=== PATIENT | female | born 1980 | race Caucasian/White ===

== ENCOUNTER 2022-08-17 17:46 | Emergency (ER) | payer OTHER, MEDICAID, SELFPAY ==
[2022-08-17 18:00] VITALS: BP 117/89; PULSE 78; RESP 16; TEMP 36.7; O2SAT 97; BMI 36.1
[2022-08-17] MEDS: ONDANSETRON 4 MG/2 ML INJ IV (18:09)
[2022-08-17 18:32] LABS: Add Manual Diff / Slide Review NO; Basophils Absolute Auto 100 /uL (0-100); Basophils Percent Auto 0.7 % (0-2); Eosinophils Absolute Auto 100 /uL (0-450); Eosinophils Percent Auto 0.7 % (2-4); Hematocrit 39.7 % (36-46); Hemoglobin 13.4 g/dL (12.0-16.0); Lymphocytes Absolute Auto 4100 /uL (1100-4500); Lymphocytes Percent Auto 47.5 % (25-40); Mean Corpuscular HGB Conc 33.7 % (30-36); Mean Corpuscular Hemoglobin 30.7 PG (26-34); Mean Corpuscular Volume 90.9 fL (80-100); Monocytes Absolute Auto 500 /uL (0-900); Monocytes Percent Auto 5.2 % (3-14); Neutrophils Absolute Auto 4000 /uL (1500-7000); Neutrophils Percent Auto 45.9 % (50-75); Platelet Count 259 X10^3/uL (150-400); Red Blood Cell Count 4.37 X10^6/uL (4.0-5.2); White Blood Cell Count 8.7 X10^3/uL (4.5-11.0)
[2022-08-17 18:39] LABS: Alanine Aminotransferase 12 IU/L (<35); Albumin 3.9 g/dL (3.5-5.0); Albumin Globulin Ratio 1.1 (1.0-2.8); Alkaline Phosphatase 48 U/L (38-126); Aspartate Aminotransferase 20 IU/L (14-36); BUN Creatinine Ratio 8.6 (6-22); Bilirubin Total 0.2 mg/dL (0.2-1.3); Blood Urea Nitrogen 8 mg/dL (7-17); Calcium 8.8 mg/dL (8.4-10.2); Carbon Dioxide 31 mmol/L (22-32); Chloride 103 mmol/L (98-107); Estimated Glomerular Filt Rate > 60 mL/min (>60); Globulin 3.6 g/dL (1.7-4.1); Glucose 62 mg/dL (70-100); HEMOLYSIS < 15 (0-50); Lipase 103 U/L (23-300); Potassium 3.8 mmol/L (3.4-5.1); Sodium 140 mmol/L (137-145); Total Protein 7.5 g/dL (6.3-8.2)
[2022-08-17 19:41] VITALS: BP 104/67; PULSE 76; RESP 16; O2SAT 98
[2022-08-17 22:09] VITALS: BP 110/70; PULSE 69; RESP 20; O2SAT 97
[2022-08-17 23:17] VITALS: PULSE 60; RESP 20; O2SAT 92
--- NOTE | 2022-08-18 00:34 | ED_ITS ---
HPI - Abdominal Pain General Chief Complaint: Abdominal Pain Stated Complaint: Abd pain, back pain, vomiting Time Seen by Provider: 08/18/22 00:18 Source: patient Mode of arrival: Ambulatory History of Present Illness HPI narrative: Patient is a 41-year-old female history of chronic pain on methadone, anxiety presenting with left lower quadrant pain. She reports it has been ongoing for about the last 2 weeks progressively getting worse. She feels like she is not keeping anything down throwing up at times. No bloody stools. She is been taking Tylenol and ibuprofen home without any relief. She denies any fever or chills. She reports that the pain is going through to her back. Related Data Previous Rx's Medication Instructions Recorded ondansetron 4 mg disintegrating 4 mg PO Q8H PRN nausea and 08/18/22 tablet vomiting #10 tabs Allergies Allergy/AdvReac Type Severity Reaction Status Date / Time amoxicillin Allergy Verified 08/17/22 18:00 aspirin Allergy Verified 08/17/22 18:00 Sulfa (Sulfonamide Allergy Verified 08/17/22 18:00 Antibiotics) Review of Systems Review of Systems ROS Unobtainable: All systems reviewed & are unremarkable except as noted in HPI and below Patient History Social History Smoking Status: Former smoker Smoking Status: Former smoker Substance Use Type: does not use Exam Initial Vital Signs Initial Vital Signs: Vital Signs Temperature 98.1 F 08/17/22 18:00 Pulse Rate 78 08/17/22 18:00 Respiratory Rate 16 08/17/22 18:00 Blood Pressure 117/89 08/17/22 18:00 Pulse Oximetry 97 08/17/22 18:00 Oxygen Delivery Method Room Air 08/17/22 18:00 GENERAL: Alert 41-year-old female appears uncomfortable and in HEENT: Head atraumatic,EOMI, pupils reactive, face symmetric, [moist] mucous membranes CARDIOVASCULAR: Regular rate and rhythm without murmurs, rubs or gallops. RESPIRATORY: Breath sounds equal bilaterally, no wheezes rales or rhonchi. ABDOMEN: Soft, left lower quadrant tenderness no guarding no rebound : No CVA tenderness EXTREMITIES: Normal range of motion, no clubbing or edema. Neurovascularly intact NEUROLOGICAL: Alert and oriented x4. SKIN: Warm, dry, no laceration, no petechiae, no rashes or lesions. Course Orders Ordered: ED Orders 08/18/22 00:34 CT abdomen pelvis w con Stat Discontinued Medications Ketorolac Tromethamine (Ketorolac 30 Mg/Ml Vial) 15 mg IV NOW ONE Stop: 08/18/22 00:35 Last Admin: 08/18/22 00:51 Dose: 15 mg Documented By: CHERYL Lorazepam (Lorazepam 2 Mg/Ml Inj) 0.5 mg IV NOW ONE Stop: 08/18/22 00:35 Last Admin: 08/18/22 00:50 Dose: 0.5 mg Documented By: CHERYL Ondansetron HCl (Ondansetron 4 Mg Odt) 4 mg PO NOW PRN PRN Reason: Nausea And Vomiting Ondansetron HCl (Ondansetron 4 Mg/2 Ml Inj) 4 mg IV NOW PRN PRN Reason: Nausea And Vomiting Last Admin: 08/17/22 18:09 Dose: 4 mg Documented By: IRMA Vital Signs Vital signs: Vital Signs - 8 hr 08/17/22 22:09 08/17/22 23:17 08/18/22 02:09 Pulse Rate 69 60 65 Respiratory Rate 20 20 20 Blood Pressure 110/70 94/55 L Pulse Oximetry 97 92 96 Oxygen Delivery Method Room Air Room Air MDM - Abdominal Pain Lab Data 08/17/22 18:17 08/17/22 18:17 Labs: Lab Results 08/17/22 08/17/22 Range/Units 18:17 18:17 WBC 8.7 (4.5-11.0) X10^3/uL RBC 4.37 (4.0-5.2) X10^6/uL Hgb 13.4 (12.0-16.0) g/dL Hct 39.7 (36-46) % MCV 90.9 (80-100) fL MCH 30.7 (26-34) PG MCHC 33.7 (30-36) % RDW 15.0 H (11.6-14.8) % Plt Count 259 (150-400) X10^3/uL Neut % (Auto) 45.9 L (50-75) % Lymph % (Auto) 47.5 H (25-40) % Rowan % (Auto) 5.2 (3-14) % Eos % (Auto) 0.7 L (2-4) % Baso % (Auto) 0.7 (0-2) % Neut # (Auto) 4000 (2887-0402) /uL Lymph # (Auto) 4100 (0040-8416) /uL Rowan # (Auto) 500 (0-900) /uL Eos # (Auto) 100 (0-450) /uL Baso # (Auto) 100 (0-100) /uL Sodium 140 (137-145) mmol/L Potassium 3.8 (3.4-5.1) mmol/L Chloride 103 (98-107) mmol/L Carbon Dioxide 31 (22-32) mmol/L BUN 8 (7-17) mg/dL Creatinine 0.93 (0.52-1.04) mg/dL Estimated GFR > 60 (>60) mL/min BUN/Creatinine Ratio 8.6 (6-22) Glucose 62 L (70-100) mg/dL Calcium 8.8 (8.4-10.2) mg/dL Total Bilirubin 0.2 (0.2-1.3) mg/dL AST 20 (14-36) IU/L ALT 12 (<35) IU/L Alkaline Phosphatase 48 (38-126) U/L Total Protein 7.5 (6.3-8.2) g/dL Albumin 3.9 (3.5-5.0) g/dL Globulin 3.6 (1.7-4.1) g/dL Albumin/Globulin Ratio 1.1 (1.0-2.8) Lipase 103 (23-300) U/L Point of care testing: Urine Dip Bedside Urine Glucose Negative Bedside Urine Bilirubin - Negative Bedside Urine Ketone - Negative Urine Specific [place] 1.025 Bedside Urine Occult Blood - Negative Bedside Urine pH 5.5 Bedside Urine Protein - Negative Bedside Urine Urobilinogen - Negative Bedside Urine Nitrite - Negative Bedside Urine Leukocytes - Negative Esterase Imaging Data CT scan - abdomen/pelvis: Radiologist's Impression: PROCEDURE:? CT ABDOMEN PELVIS W CON ? INDICATIONS:? llq pain ? TECHNIQUE:? After the administration of intravenous contrast, axial sections acquired from the lung bases to the pubic symphysis.? Coronal and sagittal reformats were performed.? For radiation dose reduction, the following was used:? automated exposure control, adjustment of mA and/or kV according to patient size.? ? COMPARISON:? None. ? FINDINGS:? Image quality:? Good ? Lower chest:? Basal scarring/atelectasis.? No hiatal hernia.? Overall heart size is within normal limits. ? Solid organs:? Liver is unremarkable.? Gallbladder is unremarkable.? There is mild biliary distension, involving the intrahepatic duct as well.? The CBD measures 8 mm. No pancreatic ductal dilation.? No splenomegaly.? No adrenal nodules.? No hydronephrosis. ? Vessels and lymph nodes:? No abdominal aortic aneurysm.? The main portal vein appears patent.? No pathologic adenopathy by size criteria. ? Bowel and peritoneum:? No evidence of small bowel obstruction.? No significant bowel inflammatory changes identified.? Normal appendix.? There is fecalization of distal small bowel loops, suggestive of slow transit time through the ileocecal valve. ? Body wall:? Unremarkable ? Pelvis:? Unremarkable appearance of the reproductive organs, but overall not well evaluated on CT.? Consider ultrasound if there is concern.? Bladder is under distended. ? Bones:? No acute or suspicious osseous finding.? Degenerative changes are present. ? IMPRESSION:? Mild dilation of the biliary tree with the CBD measuring up to 8 mm, also involving the intrahepatic branches.? This is of uncertain clinical significance and chronicity.? Correlate with LFTs.? Further evaluation could be performed with MRCP or ERCP if necessary.? Otherwise, no acute abdominal pelvic pathology identified.? Other findings as above. ? ? Dictated by: Edis Higuera M.D. on 08/18/2022 at 1:10 ? ? [facility] Narrative Medical decision making narrative: Patient presenting today with left lower quadrant pain ongoing for about 2 weeks. Blood work does not show any leukocytosis anemia electrolyte abnormality elevated liver enzymes bilirubin or GAEL. CT does not show any cause for left lower quadrant pain. It does show mild dilation of biliary tree with CBD up to 8 mm. However absolutely no right upper quadrant pain or Bajwa sign. No elevation in liver enzymes or bilirubin to suggest that this is cause of pain. Pain is really around the umbilicus kind of area. Not necessarily lower. Negative test no evidence of UTI today. She is chronically on methad one. She is given Ativan here because she started to feel anxious she did not have her Ativan yet today. No cause of her ongoing abdominal pain and back pain. Discharge Plan Departure Patient Disposition: Home Clinical Impression: Abdominal pain Instructions: DI for Abdominal Pain-Adult Activity Restrictions/Additional Instructions: *You have been diagnosed with abdominal pain *What to do: At this time CT and blood work are overall reassuring no cause of your abdominal pain at this time. You may need colonoscopy or further evaluation if it continues *Continue to take medications as directed Zofran 4 mg every 8 hours if needed for nausea or vomiting-- [facility] *Follow up with your primary care provider in 2-3 days or call [phone] *Return to ER if you should have increasing pain nausea vomiting fever [or] any new, worsening or concerning symptoms Prescriptions: New ondansetron 4 mg tablet,disintegrating 4 mg PO Q8H PRN (Reason: nausea and vomiting) Qty: 10 0RF Stand Alone Forms: Patient Portal/API
--- NOTE | 2022-08-18 00:34 | DI.CT.S_ITS ---
PROCEDURE: CT ABDOMEN PELVIS W CON INDICATIONS: llq pain TECHNIQUE: After the administration of intravenous contrast, axial sections acquired from the lung bases to the pubic symphysis. Coronal and sagittal reformats were performed. For radiation dose reduction, the following was used: automated exposure control, adjustment of mA and/or kV according to patient size. COMPARISON: None. FINDINGS: Image quality: Good Lower chest: Basal scarring/atelectasis. No hiatal hernia. Overall heart size is within normal limits. Solid organs: Liver is unremarkable. Gallbladder is unremarkable. There is mild biliary distension, involving the intrahepatic duct as well. The CBD measures 8 mm. No pancreatic ductal dilation. No splenomegaly. No adrenal nodules. No hydronephrosis. Vessels and lymph nodes: No abdominal aortic aneurysm. The main portal vein appears patent. No pathologic adenopathy by size criteria. Bowel and peritoneum: No evidence of small bowel obstruction. No significant bowel inflammatory changes identified. Normal appendix. There is fecalization of distal small bowel loops, suggestive of slow transit time through the ileocecal valve. Body wall: Unremarkable Pelvis: Unremarkable appearance of the reproductive organs, but overall not well evaluated on CT. Consider ultrasound if there is concern. Bladder is under distended. Bones: No acute or suspicious osseous finding. Degenerative changes are present. IMPRESSION: Mild dilation of the biliary tree with the CBD measuring up to 8 mm, also involving the intrahepatic branches. This is of uncertain clinical significance and chronicity. Correlate with LFTs. Further evaluation could be performed with MRCP or ERCP if necessary. Otherwise, no acute abdominal pelvic pathology identified. Other findings as above. Dictated by: Edis Higuera M.D. on 08/18/2022 at 1:10 Approved by: Edis Higuera M.D. on 08/18/2022 at 1:16
[2022-08-18] MEDS: LORazepam 2 MG/ML INJ 0.5 MG IV (00:50)
[2022-08-18] MEDS: KETOROLAC 30 MG/ML VIAL 15 MG IV (00:51)
[2022-08-18 02:09] VITALS: BP 94/55; PULSE 65; RESP 20; O2SAT 96
[2022-08-18 05:03] LABS: Pregnancy Test Serum,Qual Negative (Negative)
== END 2022-08-18 02:44 | disposition home or self-care (01) ==
PROVIDERS: Emergency Medicine; Emergency Provider Emergency Medicine
DX: R10.32 Left lower quadrant pain (principal)
CPT/HCPCS: 36415; 74177; 80053; 81003; 83690; 84703; 85025; 96374; 96375; 99284; J1885; J2060; J2405; Q9967

== ENCOUNTER 2022-09-17 07:38 | Emergency (ER) | payer OTHER, MEDICAID, SELFPAY ==
[2022-09-17] VITALS (16 sets, daily range): BP systolic 91–112; BP diastolic 50–76; PULSE 56–83; RESP 12–32; TEMP 36.5; O2SAT 94–97; BMI 34.9
--- NOTE | 2022-09-17 08:12 | ED.GIBLEED ---
HPI - GI Bleed General Chief complaint: GI Bleed Stated complaint: Rectal Bleeding Time Seen by Provider: 09/17/22 08:09 Source: patient and EMS Mode of arrival: EMS Limitations: no limitations History of Present Illness HPI Narrative: This is a 41-year-old with chronic back pain on trazodone, lorazepam and methadone. Patient states she has felt unwell she is had some rectal bleeding she believes and also some vaginal bleeding. Patient states she is had 1 episode before where she had some bloody stools. Patient states she is had formed stool she states it was red she is not really sure if it was bright red or dark red. She states no diarrheal stools. She states it was on toilet paper but also mixed in with the stool. She states it maybe there was some black mucousy stuff as well. Patient notes she is had abdominal pain that has been persistent for some time. She states the methadone usually helpful. She takes it specifically for chronic low back pain. Patient states she is had some chills. Subjective fever. She denies chest pain, no shortness of breath. She is had nausea but no vomiting she states she started having some vaginal bleeding in the last day. She states she has not had regular periods for 20 years. She states she started having menses around age 10. Having them regularly around age 15. She had to have injections of medications in order to get and had 3 prior pregnancies with 2 miscarriages 1 successful delivery. Patient states after that she stopped having periods and has not had any for about 20 years. She states she has not had any spotting or other changes and was told that she had gone into early menopause. Patient has had a tubal ligation. She denies any dysuria, urgency or frequency. She states blood just started today this morning and states she has not been having a lot so far. Patient states she did get really dizzy yesterday she thinks she might have passed out. She states she was sitting on a couch and woke up. She thinks it was just for a few seconds. She did feel dizzy just before. Patient states no other medications and those stated above. She denies other surgeries besides tubal ligation. She states she does have several allergies to medications. States she quit smoking tobacco but now vapes. Denies active alcohol use. States no recreational or illicit drugs. Related Data Previous Rx's Medication Instructions Recorded ondansetron 4 mg disintegrating 4 mg PO Q8H PRN nausea and 08/18/22 tablet vomiting #10 tabs Allergies Allergy/AdvReac Type Severity Reaction Status Date / Time fentanyl Allergy Severe Anaphylaxis Verified 09/17/22 08:22 amoxicillin Allergy Verified 08/17/22 18:00 aspirin Allergy Swelling Verified 09/17/22 08:22 of Lip/Tongue/Throat Carbapenems Allergy Verified 09/17/22 08:22 Sulfa (Sulfonamide Allergy Headache Verified 09/17/22 08:22 Antibiotics) cephelosporins Allergy Uncoded 09/17/22 08:22 Review of Systems Review of Systems ROS Unobtainable: All systems reviewed & are unremarkable except as noted in HPI and below Patient History Social History Smoking Status: Current every day smoker Smoking Status: Current every day smoker tobacco type: vaping Substance Use Type: does not use Exam Narrative Exam Narrative: GENERAL: Alert and oriented x three, female in mild distress HEENT: Head normocephalic, atraumatic, EOMI, pupils reactive, face symmetric, moist mucous membranes NECK: Supple, full range of motion CARDIOVASCULAR: Regular rate and rhythm without murmurs, rubs or gallops. RESPIRATORY: Breath sounds equal bilaterally, no wheezes rales or rhonchi. ABDOMEN: Soft, generalized tender. Normoactive bowel sounds all 4 quadrants. No guarding or rebound, rigidity, no mass : No CVA tenderness. Female: external vaginal exam is normal, patient has mild vaginal bleeding, no discharge, no cervical motion tenderness, otherwise normal speculum exam, no adnexal tenderness/mass. Bimanual exam is normal, no enlarged or tender uterus. Non-gravid. Rectal: non-tender, brownish stool, patient had blood that had run from the vaginal area towards the rectum so hemoccult was not performed as it would likely be contaminated, no masses or nodules noted. EXTREMITIES: Normal range of motion, no clubbing or edema. Neurovascularly intact NEUROLOGICAL: Cranial nerves II through XII grossly intact. Moving all extremities SKIN: Warm, dry, no petechiae, no rashes or lesions. Initial Vital Signs Initial Vital Signs: Vital Signs Temperature 97.7 F 09/17/22 07:39 Pulse Rate 74 09/17/22 07:39 Respiratory Rate 16 09/17/22 07:39 Blood Pressure 112/75 09/17/22 07:39 Pulse Oximetry 95 09/17/22 07:39 Oxygen Delivery Method Room Air 09/17/22 07:39 Course Orders Ordered: ED Orders 09/17/22 11:06 CT abdomen pelvis w con Stat Discontinued Medications Alprazolam (Alprazolam 0.5 Mg Tablet) 1 mg PO NOW ONE Stop: 09/17/22 10:26 Last Admin: 09/17/22 10:33 Dose: 1 mg Documented By: NR Sodium Chloride (Normal Saline 0.9%) 1,000 mls @ 1,000 mls/hr IV BOLUS ONE Stop: 09/17/22 09:23 Last Infusion: 09/17/22 10:40 Dose: 0 mls/hr Documented By: Admin: 09/17/22 09:37 Dose: 1,000 mls/hr Documented By: NR Ketorolac Tromethamine (Ketorolac 30 Mg/Ml Vial) 15 mg IV NOW ONE Stop: 09/17/22 09:22 Last Admin: 09/17/22 09:36 Dose: 15 mg Documented By: ELENI Ondansetron HCl (Ondansetron 4 Mg/2 Ml Inj) 4 mg IV NOW PRN PRN Reason: Nausea And Vomiting Last Admin: 09/17/22 09:38 Dose: 4 mg Documented By: ELENI Ondansetron HCl (Ondansetron 4 Mg Odt) 4 mg SL NOW PRN PRN Reason: Nausea And Vomiting Pantoprazole Sodium (Pantoprazole 40 Mg Vial) 80 mg IV NOW ONE Stop: 09/17/22 07:55 Last Admin: 09/17/22 09:38 Dose: 80 mg Documented By: NR Vital Signs Vital signs: Vital Signs - 8 hr 09/17/22 11:00 09/17/22 11:00 09/17/22 11:10 Pulse Rate 60 Respiratory Rate 18 Blood Pressure 91/50 L 95/56 L Pulse Oximetry 95 09/17/22 11:10 09/17/22 11:23 09/17/22 11:23 Pulse Rate 59 L 56 L Respiratory Rate 22 Blood Pressure 112/63 Pulse Oximetry 95 94 09/17/22 12:27 09/17/22 12:28 09/17/22 12:28 Pulse Rate 61 Respiratory Rate Blood Pressure 109/74 Pulse Oximetry 97 96 MDM - GI Bleed Lab Data 09/17/22 07:48 09/17/22 07:48 Labs: Lab Results 09/17/22 09/17/22 09/17/22 Range/Units 07:48 07:48 07:48 WBC 6.5 (4.5-11.0) X10^3/uL RBC 4.12 (4.0-5.2) X10^6/uL Hgb 12.6 (12.0-16.0) g/dL Hct 37.7 (36-46) % MCV 91.5 (80-100) fL MCH 30.5 (26-34) PG MCHC 33.4 (30-36) % RDW 14.7 (11.6-14.8) % Plt Count 260 (150-400) X10^3/uL Neut % (Auto) 64.1 (50-75) % Lymph % (Auto) 27.1 (25-40) % Stephenson % (Auto) 7.3 (3-14) % Eos % (Auto) 0.9 L (2-4) % Baso % (Auto) 0.6 (0-2) % Neut # (Auto) 4200 (5285-4143) /uL Lymph # (Auto) 1800 (7795-7436) /uL Stephenson # (Auto) 500 (0-900) /uL Eos # (Auto) 100 (0-450) /uL Baso # (Auto) 0 (0-100) /uL PT 11.4 (10.1-12.7) SECONDS INR 1.0 (0.9-1.3) APTT 28 (26-36) SECONDS Sodium 138 (137-145) mmol/L Potassium 4.0 (3.4-5.1) mmol/L Chloride 103 (98-107) mmol/L Carbon Dioxide 27 (22-32) mmol/L BUN 10 (7-17) mg/dL Creatinine 0.77 (0.52-1.04) mg/dL Estimated GFR > 60 (>60) mL/min BUN/Creatinine Ratio 13.0 (6-22) Glucose 107 H (70-100) mg/dL Calcium 8.6 (8.4-10.2) mg/dL Total Bilirubin 0.3 (0.2-1.3) mg/dL AST 19 (14-36) IU/L ALT 15 (<35) IU/L Alkaline Phosphatase 49 (38-126) U/L Total Creatine Kinase (30-135) U/L CK-MB (CK-2) (<2.37) ng/mL CK-MB (CK-2) Rel Index (1.5-5.0) % Troponin I (0.01-0.034) ng/mL NT-Pro-B Natriuret Pep (<125) pg/mL Total Protein 6.7 (6.3-8.2) g/dL Albumin 3.7 (3.5-5.0) g/dL Globulin 3.0 (1.7-4.1) g/dL Albumin/Globulin Ratio 1.2 (1.0-2.8) Urine RBC (0-5/HPF) Urine WBC (0-5/HPF) Ur Squamous Epith Cells (0-5/HPF) Urine Bacteria (None) Ur Culture Indicated? Blood Type Antibody Screen 09/17/22 09/17/22 09/17/22 Range/Units 07:48 07:48 07:48 WBC (4.5-11.0) X10^3/uL RBC (4.0-5.2) X10^6/uL Hgb (12.0-16.0) g/dL Hct (36-46) % MCV (80-100) fL MCH (26-34) PG MCHC (30-36) % RDW (11.6-14.8) % Plt Count (150-400) X10^3/uL Neut % (Auto) (50-75) % Lymph % (Auto) (25-40) % Stephenson % (Auto) (3-14) % Eos % (Auto) (2-4) % Baso % (Auto) (0-2) % Neut # (Auto) (8802-7072) /uL Lymph # (Auto) (9942-8554) /uL Stephenson # (Auto) (0-900) /uL Eos # (Auto) (0-450) /uL Baso # (Auto) (0-100) /uL PT (10.1-12.7) SECONDS INR (0.9-1.3) APTT (26-36) SECONDS Sodium (137-145) mmol/L Potassium (3.4-5.1) mmol/L Chloride (98-107) mmol/L Carbon Dioxide (22-32) mmol/L BUN (7-17) mg/dL Creatinine (0.52-1.04) mg/dL Estimated GFR (>60) mL/min BUN/Creatinine Ratio (6-22) Glucose (70-100) mg/dL Calcium (8.4-10.2) mg/dL Total Bilirubin (0.2-1.3) mg/dL AST (14-36) IU/L ALT (<35) IU/L Alkaline Phosphatase (38-126) U/L Total Creatine Kinase 135 (30-135) U/L CK-MB (CK-2) 1.02 (<2.37) ng/mL CK-MB (CK-2) Rel Index 0.8 L (1.5-5.0) % Troponin I < 0.012 (0.01-0.034) ng/mL NT-Pro-B Natriuret Pep 101 (<125) pg/mL Total Protein (6.3-8.2) g/dL Albumin (3.5-5.0) g/dL Globulin (1.7-4.1) g/dL Albumin/Globulin Ratio (1.0-2.8) Urine RBC (0-5/HPF) Urine WBC (0-5/HPF) Ur Squamous Epith Cells (0-5/HPF) Urine Bacteria (None) Ur Culture Indicated? Blood Type O Positive Antibody Screen Negative 09/17/22 Range/Units 09:14 WBC (4.5-11.0) X10^3/uL RBC (4.0-5.2) X10^6/uL Hgb (12.0-16.0) g/dL Hct (36-46) % MCV (80-100) fL MCH (26-34) PG MCHC (30-36) % RDW (11.6-14.8) % Plt Count (150-400) X10^3/uL Neut % (Auto) (50-75) % Lymph % (Auto) (25-40) % Stephenson % (Auto) (3-14) % Eos % (Auto) (2-4) % Baso % (Auto) (0-2) % Neut # (Auto) (5665-7517) /uL Lymph # (Auto) (0914-2451) /uL Stephenson # (Auto) (0-900) /uL Eos # (Auto) (0-450) /uL Baso # (Auto) (0-100) /uL PT (10.1-12.7) SECONDS INR (0.9-1.3) APTT (26-36) SECONDS Sodium (137-145) mmol/L Potassium (3.4-5.1) mmol/L Chloride (98-107) mmol/L Carbon Dioxide (22-32) mmol/L BUN (7-17) mg/dL Creatinine (0.52-1.04) mg/dL Estimated GFR (>60) mL/min BUN/Creatinine Ratio (6-22) Glucose (70-100) mg/dL Calcium (8.4-10.2) mg/dL Total Bilirubin (0.2-1.3) mg/dL AST (14-36) IU/L ALT (<35) IU/L Alkaline Phosphatase (38-126) U/L Total Creatine Kinase (30-135) U/L CK-MB (CK-2) (<2.37) ng/mL CK-MB (CK-2) Rel Index (1.5-5.0) % Troponin I (0.01-0.034) ng/mL NT-Pro-B Natriuret Pep (<125) pg/mL Total Protein (6.3-8.2) g/dL Albumin (3.5-5.0) g/dL Globulin (1.7-4.1) g/dL Albumin/Globulin Ratio (1.0-2.8) Urine RBC 5-10/hpf H (0-5/HPF) Urine WBC 0-1/hpf (0-5/HPF) Ur Squamous Epith Cells 1-5 /hpf (0-5/HPF) Urine Bacteria None seen (None) Ur Culture Indicated? Cult not indicated Blood Type Antibody Screen Point of Care Testing Test Results Negative Urine Dip Bedside Urine Glucose Negative Bedside Urine Bilirubin - Negative Bedside Urine Ketone - Negative Urine Specific [place] 1.020 Bedside Urine Occult Blood ++ Bedside Urine pH 6.5 Bedside Urine Protein - Negative Bedside Urine Urobilinogen - Negative Bedside Urine Nitrite - Negative Bedside Urine Leukocytes - Negative Esterase Imaging Data Chest x-ray: Radiologist's Impression: [facility] [address] [place] [address] XRay Report Signed Patient: Demetrio Duran MR#: [id number] : 1980 Acct:[id number] Age/Sex: 41 / F Date of Service: 09/17/22 Loc: ED Accession Number: [id number] ?? Procedure: XR chest 1V Ordering Provider: Darby Olivier D.O. PROCEDURE:? XR CHEST 1V ? INDICATIONS:? syncope ? TECHNIQUE:? One view of the chest was acquired.? ? COMPARISON:? None. ? FINDINGS:? ? Surgical changes and devices:? None.? ? Lungs and pleura:? Lungs are clear.? No pleural effusions or pneumothorax.? ? Mediastinum:? Mediastinal contours appear normal.? Heart size is normal.? ? Bones and chest wall:? No suspicious bony lesions.? Overlying soft tissues appear unremarkable.? ? IMPRESSION:? No acute cardiopulmonary process. ? ? ? Dictated by: Torito Woodson M.D. on 09/17/2022 at 8:54 ? ? Approved by: Torito Woodson M.D. on 09/17/2022 at 8:54?? CT scan - abdomen/pelvis: Radiologist's Impression: [address] [address] [address] Scan Report Signed Patient: Demetrio Duran MR#: [id number] : 1980 Acct:[id number] Age/Sex: 41 / F Date of Service: 09/17/22 Loc: ED Accession Number: [id number] ?? Procedure: CT abdomen pelvis w con Ordering Provider: Darby Olivier D.O. PROCEDURE:? CT ABDOMEN PELVIS W CON ? INDICATIONS:? abd pain ? TECHNIQUE:? After the administration of intravenous contrast, axial sections acquired from the lung bases to the pubic symphysis.? Coronal and sagittal reformats were performed.? For radiation dose reduction, the following was used:? automated exposure control, adjustment of mA and/or kV according to patient size.? ? COMPARISON:? [facility], CT, CT ABDOMEN PELVIS W CON, 08/18/2022, 0:46. ? FINDINGS:? Image quality:? Excellent.? ? Lung bases:? Unremarkable. Heart:? No significant findings. ? ABDOMEN: Liver:? Unremarkable.? ? Gallbladder:? Unremarkable.? ? Biliary ducts:? Unremarkable.? ? Pancreas:? Unremarkable.? ? Spleen:? Unremarkable.? ? Adrenal Glands:? Unremarkable.? ? Kidneys and Ureters:? Unremarkable.? ? ? Stomach and Bowel:? Stomach, small bowel loops, and colon are unremarkable.? Peritoneum:? No abnormal intraperitoneal fluid.? No free air.? ? Ventral Wall: ? No hernias.? Abdominal Nodes:? No retroperitoneal or mesenteric adenopathy by size criteria.? Vessels:? Aorta and inferior vena cava are normal in size.? ? PELVIS: Pelvic Organs:? Unremarkable.? ? Bladder:? Unremarkable.? ? Pelvic Nodes: No enlarged lymph nodes.? Miscellaneous: No hernias are seen. ? ? ? Bones:? Mild bilateral sacroiliitis. ? ? IMPRESSION:? No acute findings to explain the patient's GI bleed.? No colitis or diverticulitis. ? Mild sacroiliitis, which has associations with multiple disease processes such as inflammatory bowel disease. ? ? Dictated by: Torito Woodson M.D. on 09/17/2022 at 11:29 ? ? Approved by: Torito Woodson M.D. on 09/17/2022 at 11:32?? pelvic US: Radiologist's Impression: Close Abdomen/Pelvis CT (Signed) Torito Woodson - 09/17/22 Pelvis Ultrasound (Signed) Torito Woodson - 09/17/22 Chest X-Ray (Signed) Torito Woodson - 09/17/22 Abdomen/Pelvis CT (Signed) Edis Higuera - 08/18/22 [place] [address] Ultrasound Report Signed Patient: Demetrio Duran MR#: [id number] : 1980 Acct:[id number] Age/Sex: 41 / F Date of Service: 09/17/22 Loc: ED Accession Number: [id number] ?? Procedure: US pelvic complete Ordering Provider: Darby Olivier D.O. PROCEDURE:? US PELVIC COMPLETE ? INDICATIONS:? vaginal bleeding, no menses x 20 years ? TECHNIQUE:? Real-time scanning was performed of the pelvic organs, with image documentation.? Additional endovaginal scanning was necessary due to incomplete visualization of the adnexal and endometrial structures by transabdominal scanning.? ? COMPARISON:? None. ? FINDINGS:? ?? Uterus:? Uterus is retroverted and normal in size at 6.1 x 4.0 x 4.6 cm. The myometrium is homogeneous. ? The endometrium measures 1 mm combined thickness.? ? Ovaries:? The right ovary measures 2.2 x 1.2 x 1.1 cm, with a calculated ovarian volume of 1.6 cc.? Left ovary not visualized.? No adnexal mass. ? Other:? No pathologic free abdominal or pelvic fluid.? Non peristalsing bowel in the left adnexa. ? ? IMPRESSION:? Endometrium measures 1 mm, indicating atrophy. ? Left ovary not visualized. ? ? We strive to produce accurate, complete, and clear reports of imaging services. To assist us in improving patient care, this report was composed using standard report templates and voice recognition software. Therefore, it may contain abnormal punctuation, insertions and/or omissions. Occasional wrong-word or sound-alike substitutions may occur. Though we review the report and make efforts to correct it, we do recommend that the report be read carefully in proper context to recognize any text inaccuracies. ? ? Dictated by: Torito Woodson M.D. on 09/17/2022 at 10:19 ? ? Approved by: Torito Woodson M.D. on 09/17/2022 at 10:21?? ECG Data Attestation: I personally reviewed and interpreted this ECG as follows: Interpretation: Sinus bradycardia rate of 59, [place] 186, QRS of [address]TC [address] No acute [address] elevation. Nonspecific change. MDM Narrative Medical decision making narrative: This is a 41-year-old female who comes with complaint of possible rectal bleeding but is also having vaginal bleeding which is new. Patient has been having new lower abdominal pain she started having vaginal bleeding today. She noted some black or possibly bloody stools but also notes that she is had no bleeding. Patient had had a menses in about 15-20 year she states she had very atypical periods that is stopped when she was 15 she required injections in order to get and no longer had any additional bleeding after that. Patient states she did have what sounds like a syncopal episode yesterday, cardiac workup is negative, EKG, blood work she is no anemia, renal function electrolytes are normal. Chest x-ray was negative. Pelvic ultrasound shows some atrophy, right ovaries visualized but not left. CT abdomen pelvis was obtained she is had some lower pelvic pain suspect this is more from the vaginal bleeding and likely cramping and showed possible sacroiliitis but no other acute changes. Stool occult was not really able to be performed as there was blood from the vaginal area in the rectal area but YANG was performed and stool is brown without any active bleed from the rectum appreciated. Patient is felt appropriate and safe for discharge referral to OB for her abnormal vaginal bleeding and PCP for further workup for possible autoimmune disease with or without on rheumatology. Patient is accompanied by 1 of the workers from [facility] who will help coordinate her care. Discharge Plan Departure Patient Disposition: Home Clinical Impression: Vaginal bleeding, Abdominal pain Instructions: DI for Vaginal Bleeding Activity Restrictions/Additional Instructions: Please follow-up with OBGYN regarding your vaginal bleeding, since you have not had periods for about 15-20 years they will likely do some additional workup. Please call to set up an appointment. Your imaging did show a little bit of change to the sacrum this could be contributing to your back pain, I would recommend follow up with primary care for rheumatology for further workup as there were some changes consistent with sacroiliitis. This can sometimes be associated with autoimmune diseases. You can continue your home medications as prescribed. You can take Tylenol with this up to a 1000 mg every 6 hours. Please return for fevers, worsening symptoms, recurrent passing out, persistent lightheadedness, persistent vomiting, persistent black or bloody stools, going through more than a pad or tampon an hour, worsening abdominal pain or other new or concerning changes. Prescriptions: No Action ondansetron 4 mg tablet,disintegrating 4 mg PO Q8H PRN (Reason: nausea and vomiting) Qty: 10 0RF Referrals: Miscellaneous,MD Susy [Primary Care Provider] - Nicholas Rodrigez MD [Physician] - Stand Alone Forms: Patient Portal/API, Work Release Note
--- NOTE | 2022-09-17 08:13 | PC.NURSE ---
pt states she has been in menopause for 20ish years. she went to [facility] when she was younger and was given medications that forced her to have a period, then she got and had her son. she had a tubal ligation after that and has never had a period since. she did have an episode of vaginal bleeding approximately two months ago, was seen in the [facility] clinic for this and needs to follow up with a specialist.
[2022-09-17 08:24] LABS: Alanine Aminotransferase 15 IU/L (<35); Albumin 3.7 g/dL (3.5-5.0); Albumin Globulin Ratio 1.2 (1.0-2.8); Alkaline Phosphatase 49 U/L (38-126); Aspartate Aminotransferase 19 IU/L (14-36); Bilirubin Total 0.3 mg/dL (0.2-1.3); Blood Urea Nitrogen 10 mg/dL (7-17); Calcium 8.6 mg/dL (8.4-10.2); Carbon Dioxide 27 mmol/L (22-32); Chloride 103 mmol/L (98-107); Estimated Glomerular Filt Rate > 60 mL/min (>60); Glucose 107 mg/dL (70-100); HEMOLYSIS < 15 (0-50); Sodium 138 mmol/L (137-145); Total Protein 6.7 g/dL (6.3-8.2)
[2022-09-17 08:26] LABS: Add Manual Diff / Slide Review NO; Basophils Absolute Auto 0 /uL (0-100); Basophils Percent Auto 0.6 % (0-2); Creatine Kinase 135 U/L (30-135); Eosinophils Absolute Auto 100 /uL (0-450); Eosinophils Percent Auto 0.9 % (2-4); Hematocrit 37.7 % (36-46); Hemoglobin 12.6 g/dL (12.0-16.0); Lymphocytes Absolute Auto 1800 /uL (1100-4500); Lymphocytes Percent Auto 27.1 % (25-40); Mean Corpuscular HGB Conc 33.4 % (30-36); Mean Corpuscular Hemoglobin 30.5 PG (26-34); Mean Corpuscular Volume 91.5 fL (80-100); Monocytes Absolute Auto 500 /uL (0-900); Monocytes Percent Auto 7.3 % (3-14); Neutrophils Absolute Auto 4200 /uL (1500-7000); Neutrophils Percent Auto 64.1 % (50-75); Platelet Count 260 X10^3/uL (150-400); Red Blood Cell Count 4.12 X10^6/uL (4.0-5.2); Red Cell Distribution Width 14.7 % (11.6-14.8); White Blood Cell Count 6.5 X10^3/uL (4.5-11.0)
[2022-09-17 08:35] LABS: Prothrombin Time 11.4 SECONDS (10.1-12.7)
[2022-09-17 08:37] LABS: NT-proBNP (BNP-Adult 18+) 101 pg/mL (<125); PTT Partial Thromboplastin Tim 28 SECONDS (26-36)
--- NOTE | 2022-09-17 08:38 | DI.RAD.S_ITS ---
PROCEDURE: XR CHEST 1V INDICATIONS: syncope TECHNIQUE: One view of the chest was acquired. COMPARISON: None. FINDINGS: Surgical changes and devices: None. Lungs and pleura: Lungs are clear. No pleural effusions or pneumothorax. Mediastinum: Mediastinal contours appear normal. Heart size is normal. Bones and chest wall: No suspicious bony lesions. Overlying soft tissues appear unremarkable. IMPRESSION: No acute cardiopulmonary process. Dictated by: Torito Woodson M.D. on 09/17/2022 at 8:54 Approved by: Torito Woodson M.D. on 09/17/2022 at 8:54
--- NOTE | 2022-09-17 08:38 | DI.US.S_ITS ---
PROCEDURE: US PELVIC COMPLETE INDICATIONS: vaginal bleeding, no menses x 20 years TECHNIQUE: Real-time scanning was performed of the pelvic organs, with image documentation. Additional endovaginal scanning was necessary due to incomplete visualization of the adnexal and endometrial structures by transabdominal scanning. COMPARISON: None. FINDINGS: Uterus: Uterus is retroverted and normal in size at 6.1 x 4.0 x 4.6 cm. The myometrium is homogeneous. The endometrium measures 1 mm combined thickness. Ovaries: The right ovary measures 2.2 x 1.2 x 1.1 cm, with a calculated ovarian volume of 1.6 cc. Left ovary not visualized. No adnexal mass. Other: No pathologic free abdominal or pelvic fluid. Non peristalsing bowel in the left adnexa. IMPRESSION: Endometrium measures 1 mm, indicating atrophy. Left ovary not visualized. We strive to produce accurate, complete, and clear reports of imaging services. To assist us in improving patient care, this report was composed using standard report templates and voice recognition software. Therefore, it may contain abnormal punctuation, insertions and/or omissions. Occasional wrong-word or sound-alike substitutions may occur. Though we review the report and make efforts to correct it, we do recommend that the report be read carefully in proper context to recognize any text inaccuracies. Dictated by: Torito Woodson M.D. on 09/17/2022 at 10:19 Approved by: Torito Woodson M.D. on 09/17/2022 at 10:21
[2022-09-17 08:39] LABS: Troponin I < 0.012 ng/mL (0.01-0.034)
[2022-09-17 08:42] LABS: CKMB % Relative Index 0.8 % (1.5-5.0); Creatine Kinase MB 1.02 ng/mL (<2.37)
--- NOTE | 2022-09-17 08:51 | PC.NURSE ---
cristiano ordered, waiting for MD to see pt, xray then in room, then EKG in room, then US here to do exam. meds to be given after
[2022-09-17] MEDS: KETOROLAC 30 MG/ML VIAL 15 MG IV (09:36)
[2022-09-17] MEDS: SODIUM CHLORIDE 0.9% 1,000 ML 1000 ML IV (09:37)
[2022-09-17] MEDS: PANTOPRAZOLE 40 MG VIAL 80 MG IV (09:38)
[2022-09-17] MEDS: ONDANSETRON 4 MG/2 ML INJ IV (09:38)
[2022-09-17 09:46] LABS: Bacteria Urine None Seen; Culture Indicated Urine Cult Not Indicated; RBC Urine 5-10/HPF (0-5/HPF); Squamous Epithelial Cell Urine 1-5 /HPF (0-5/HPF); WBC Urine 0-1/HPF (0-5/HPF)
[2022-09-17] MEDS: ALPRAZolam 0.5 MG TABLET 1 MG PO (10:33)
--- NOTE | 2022-09-17 11:06 | DI.CT.S_ITS ---
PROCEDURE: CT ABDOMEN PELVIS W CON INDICATIONS: abd pain TECHNIQUE: After the administration of intravenous contrast, axial sections acquired from the lung bases to the pubic symphysis. Coronal and sagittal reformats were performed. For radiation dose reduction, the following was used: automated exposure control, adjustment of mA and/or kV according to patient size. COMPARISON: [facility], CT, CT ABDOMEN PELVIS W CON, 08/18/2022, 0:46. FINDINGS: Image quality: Excellent. Lung bases: Unremarkable. Heart: No significant findings. ABDOMEN: Liver: Unremarkable. Gallbladder: Unremarkable. Biliary ducts: Unremarkable. Pancreas: Unremarkable. Spleen: Unremarkable. Adrenal Glands: Unremarkable. Kidneys and Ureters: Unremarkable. Stomach and Bowel: Stomach, small bowel loops, and colon are unremarkable. Peritoneum: No abnormal intraperitoneal fluid. No free air. Ventral Wall: No hernias. Abdominal Nodes: No retroperitoneal or mesenteric adenopathy by size criteria. Vessels: Aorta and inferior vena cava are normal in size. PELVIS: Pelvic Organs: Unremarkable. Bladder: Unremarkable. Pelvic Nodes: No enlarged lymph nodes. Miscellaneous: No hernias are seen. Bones: Mild bilateral sacroiliitis. IMPRESSION: No acute findings to explain the patient's GI bleed. No colitis or diverticulitis. Mild sacroiliitis, which has associations with multiple disease processes such as inflammatory bowel disease. Dictated by: Torito Woodson M.D. on 09/17/2022 at 11:29 Approved by: Torito Woodson M.D. on 09/17/2022 at 11:32
== END 2022-09-17 12:43 | disposition home or self-care (01) ==
PROVIDERS: Emergency Provider Emergency Medicine
DX: N93.9 Abnormal uterine and vaginal bleeding, unspecified (principal); R10.9 Unspecified abdominal pain; R50.9 Fever, unspecified; R55 Syncope and collapse
CPT/HCPCS: 71045; 74177; 76830; 76856; 80053; 81003; 81015; 81025; 82550; 82553; 83880; 84484; 85025; 85610; 85730; 86850; 86900; 86901; 93005; 93976; 96361; 96374; 96375; 99284; 99285; C9113; J1885; J2405

== ENCOUNTER 2024-07-18 12:12 | Emergency (ER) | payer OTHER, MEDICAID, SELFPAY ==
[2024-07-18 12:15] VITALS: BP 127/77; PULSE 89; RESP 20; TEMP 37.1; O2SAT 97; BMI 32.3
--- NOTE | 2024-07-18 12:39 | DI.MRI.S_ITS ---
PROCEDURE: MR LUMBAR SPINE WO CON INDICATIONS: Back pain/urinary incontinence TECHNIQUE: Noncontrast sagittal T1 spin echo and T2 fast echo, sagittal STIR, and T2 fast spin echo through the lumbar spine. In cases with scoliosis, additional coronal T2 fast spin echo may be performed. COMPARISON: [facility], CT, CT ABDOMEN PELVIS W CON, 09/17/2022, 11:19. FINDINGS: Image quality: Excellent. Alignment and Curvature: There is normal bony alignment. Bone Marrow: Marrow is of normal overall signal. No acute vertebral body compression fractures. Spinal Cord: Conus medullaris terminates at the T12-L1 level. Visualized cord demonstrates normal signal and size. Paraspinous Soft Tissues: No paravertebral masses. T12-L1: Normal appearance. L1-L2: Mild disc desiccation. Bilateral facet arthrosis is seen. No significant disc bulge, canal stenosis or neural foraminal narrowing. L2-L3: Mild disc desiccation and bilateral facet arthrosis. No significant disc bulge, canal stenosis or neural foraminal narrowing. L3-L4: Disc desiccation and loss of disc height. Diffuse disc bulge and bilateral facet arthrosis with hypertrophy of ligamentum flavum causing mild central canal stenosis and [id number] bilateral neural foraminal narrowing slightly worse on the left side. Bulging disc likely contacting bilateral L3 nerve roots. L4-L5: Loss of disc height and disc signal. Broad-based disc bulge and superimposed central disc herniation with bilateral facet arthrosis and hypertrophy of ligamentum flavum causing [id number] central canal stenosis, moderate to severe left-sided neural foraminal narrowing and moderate right-sided neural foraminal narrowing. Bulging disc likely contacting bilateral L4 nerve roots. L5-S1: Normal appearance. IMPRESSION: 1. No marrow edema. No acute compression fracture or spondylolisthesis. No gross paraspinous soft tissue abnormalities. 2. Spondylitic changes and bilateral facet arthrosis at L1-2 through L4-5 levels causing various degrees of central canal stenosis and bilateral neural foraminal narrowing most notably at L4-5 level as above. Dictated by: Manfred Gaoan M.D. on 07/18/2024 at 15:02 Approved by: Manfred Gaona M.D. on 07/18/2024 at 15:04
--- NOTE | 2024-07-18 12:47 | ED_ITS ---
HPI - Back Pain/Injury General Chief Complaint: Back Pain/Injury Stated Complaint: back pain hx degenerative disks Time Seen by Provider: 07/18/24 12:39 Source: patient History of Present Illness HPI Narrative: Patient here for low back pain radiating to right leg. Patient had urinary incontinence yesterday. /last night. Patient has had back problems since she was a teenager. Has been evaluated by providers but has not able to get any surgeries. Patient states pain has been increasing in the past 1 month. Has had pain and weakness of the right leg as well. No fever or chills. No saddle paresthesia. Related Data Previous Rx's Medication Instructions Recorded ondansetron 4 mg disintegrating 4 mg PO Q8H PRN nausea and 08/18/22 tablet vomiting #10 tabs methylprednisolone 4 mg tablets in See Rx Instructions PO .COMPLEX 07/18/24 a dose pack (Medrol (Dangelo)) #21 ea ondansetron 4 mg disintegrating 4 mg PO Q8H PRN nausea and 07/18/24 tablet vomiting #10 tabs oxycodone-acetaminophen 5 mg-325 1 tab PO Q4-6H PRN pain #16 tabs 07/18/24 mg tablet (Percocet) Allergies Allergy/AdvReac Type Severity Reaction Status Date / Time fentanyl Allergy Severe Anaphylaxis Verified 09/17/22 08:22 amoxicillin Allergy Verified 08/17/22 18:00 aspirin Allergy Swelling Verified 09/17/22 08:22 of Lip/Tongue/Throat Carbapenems Allergy Verified 09/17/22 08:22 Sulfa (Sulfonamide Allergy Headache Verified 09/17/22 08:22 Antibiotics) cephelosporins Allergy Uncoded 09/17/22 08:22 Review of Systems Review of Systems Narrative: GENERAL: Negative chills, fatigue, malaise, fever, sweats. HEENT: Negative sinus pain, ear pain, sore throat RESPIRATORY: Negative dyspnea, cough CARDIOVASCULAR: Negative chest pain, palpitations GASTROINTESTINAL: Negative vomiting, nausea, abdominal pain : Negative dysuria, frequency, hematuria, positive incontinence MUSCULOSKELETAL: Positive back, muscle or bony pain SKIN: Negative rash, skin lesions NEUROLOGIC: Positive weakness, numbness ROS Unobtainable: All systems reviewed & are unremarkable except as noted in HPI and below Patient History Social History Smoking Status: Current every day smoker Smoking Status: Current every day smoker tobacco type: cigarettes and vaping Exam Narrative Exam Narrative: GENERAL: in no distress, not toxic not dyspneic HEAD: Normocephalic. EYES: Pupils equal round ENT: Mucous membranes moist. NECK: Trachea midline. CARDIOVASCULAR: Regular rate and rhythm RESPIRATORY: Clear to auscultation. Breath sounds equal bilaterally. No wheezes, rales, or rhonchi. GASTROINTESTINAL: Abdomen soft, non-tender EXTREMITIES: No gross deformities. BACK: No flank tenderness. There is reproducible right lower paralumbar muscle tenderness. Limited range of motion of the waist with flexion-extension side been and twisting at the waist area due to pain on the right. Increased pain with by lateral straight leg raises right greater than left. NEURO: AOx4. Clear speech There is strong bilateral patellar reflexes and ankle flexion-extension. Light touch intact to bilateral legs and feet our patient states feels slightly different on the right lower extremity. SKIN: Warm and dry PSYCH: Not anxious, is cooperative Initial Vital Signs Initial Vital Signs: Vital Signs Temperature 98.7 F 07/18/24 12:15 Pulse Rate 89 07/18/24 12:15 Respiratory Rate 20 07/18/24 12:15 Blood Pressure 127/77 07/18/24 12:15 Pulse Oximetry 97 07/18/24 12:15 Oxygen Delivery Method Room Air 07/18/24 12:15 Course Orders Ordered: Discontinued Medications Hydromorphone HCl (Hydromorphone 1 Mg Inj) 1 mg IV NOW ONE Stop: 07/18/24 12:44 Last Admin: 07/18/24 13:01 Dose: 1 mg Documented By: JOHN Hydromorphone HCl (Hydromorphone 1 Mg Inj) 1 mg IV NOW ONE Stop: 07/18/24 13:39 Last Admin: 07/18/24 13:52 Dose: 1 mg Documented By: LYNDON Hydromorphone HCl (Hydromorphone 1 Mg Inj) 1 mg IV NOW ONE Stop: 07/18/24 14:57 Last Admin: 07/18/24 15:04 Dose: 1 mg Documented By: KATERIN Dextrose (D10w) 100 mls @ 999 mls/hr IV PRN PRN PRN Reason: Hypoglycemia Sodium Chloride (Normal Saline 0.9%) 1,000 mls @ 1,000 mls/hr IV BOLUS ONE Stop: 07/18/24 16:50 Dextrose/Sodium Chloride (Dextrose 5%-0.45% Ns) 1,000 mls @ 150 mls/hr IV CONT MARCELO INSULIN DRIP PREMIX (Myxredlin Drip Premix) 100 unit in 100 mls @ 9.072 mls/hr IV TITRATE MARCELO; Protocol Methylprednisolone (Methylprednisolone 125 Mg/2 Ml Vial) 125 mg IV NOW ONE Stop: 07/18/24 15:50 Last Admin: 07/18/24 16:07 Dose: 125 mg Documented By: LNYDON Ondansetron HCl (Ondansetron 4 Mg/2 Ml Inj) 4 mg IV NOW ONE Stop: 07/18/24 12:44 Last Admin: 07/18/24 13:01 Dose: 4 mg Documented By: JOHN Oxycodone/Acetaminophen (Oxycodone/Acetaminophen 5/325 Tablet) 1 tab PO NOW ONE Stop: 07/18/24 15:51 Last Admin: 07/18/24 16:07 Dose: 1 tab Documented By: LYNDON Vital Signs Vital signs: Vital Signs - 8 hr 07/18/24 12:15 Temperature 98.7 F Pulse Rate 89 Respiratory Rate 20 Blood Pressure 127/77 Pulse Oximetry 97 Oxygen Delivery Method Room Air MDM - Back Pain/Injury Lab Data 07/18/24 12:55 07/18/24 12:55 Labs: Lab Results 07/18/24 Range/Units 12:55 WBC 9.0 (4.5-11.0) X10^3/uL RBC 4.32 (4.0-5.2) X10^6/uL Hgb 13.5 (12.0-16.0) g/dL Hct 39.5 (36-46) % MCV 91.5 (80-100) fL MCH 31.2 (26-34) PG MCHC 34.1 (30-36) % RDW 13.7 (11.6-14.8) % Plt Count 288 (150-400) X10^3/uL Neut % (Auto) 42.8 L (50-75) % Lymph % (Auto) 47.9 H (25-40) % Craven % (Auto) 6.6 (3-14) % Eos % (Auto) 1.8 L (2-4) % Baso % (Auto) 0.9 (0-2) % Neut # (Auto) 3800 (4634-6059) /uL Lymph # (Auto) 4300 (5104-6656) /uL Craven # (Auto) 600 (0-900) /uL Eos # (Auto) 200 (0-450) /uL Baso # (Auto) 100 (0-100) /uL Sodium 135 L (137-145) mmol/L Potassium 4.4 (3.4-5.1) mmol/L Chloride 102 (98-107) mmol/L Carbon Dioxide 25 (22-32) mmol/L BUN 11 (7-17) mg/dL Creatinine 0.87 (0.52-1.04) mg/dL Estimated GFR > 60 (>60) mL/min BUN/Creatinine Ratio 12.6 (6-22) Glucose 83 (70-100) mg/dL Calcium 9.2 (8.4-10.2) mg/dL Total Bilirubin 0.4 (0.2-1.3) mg/dL AST 30 (14-36) IU/L ALT 16 (<35) IU/L Alkaline Phosphatase 47 (38-126) U/L Total Protein 7.6 (6.3-8.2) g/dL Albumin 4.3 (3.5-5.0) g/dL Globulin 3.3 (1.7-4.1) g/dL Albumin/Globulin Ratio 1.3 (1.0-2.8) Serum , Qual Negative (Negative) Imaging Data MRI lumbar spine: Radiologist's Impression: [address] [address] Magnetic Resonance Report Signed Patient: Demetrio Duran MR#: [id number] : 1980 Acct:[id number] Age/Sex: 43 / F Date of Service: 07/18/24 Loc: ED Accession Number: [id number] Procedure: MR lumbar spine wo con Ordering Provider: Babar Sumner MD PROCEDURE: MR LUMBAR SPINE WO CON INDICATIONS: Back pain/urinary incontinence TECHNIQUE: Noncontrast sagittal T1 spin echo and T2 fast echo, sagittal STIR, and T2 fast spin echo through the lumbar spine. In cases with scoliosis, additional coronal T2 fast spin echo may be performed. COMPARISON: [facility], CT, CT ABDOMEN PELVIS W CON, 09/17/2022, 11:19. FINDINGS: Image quality: Excellent. Alignment and Curvature: There is normal bony alignment. Bone Marrow: Marrow is of normal overall signal. No acute vertebral body compression fractures. Spinal Cord: Conus medullaris terminates at the T12-L1 level. Visualized cord demonstrates normal signal and size. Paraspinous Soft Tissues: No paravertebral masses. T12-L1: Normal appearance. L1-L2: Mild disc desiccation. Bilateral facet arthrosis is seen. No significant disc bulge, canal stenosis or neural foraminal narrowing. L2-L3: Mild disc desiccation and bilateral facet arthrosis. No significant disc bulge, canal stenosis or neural foraminal narrowing. L3-L4: Disc desiccation and loss of disc height. Diffuse disc bulge and bilateral facet arthrosis with hypertrophy of ligamentum flavum causing mild central canal stenosis and [id number] bilateral neural foraminal narrowing slightly worse on the left side. Bulging disc likely contacting bilateral L3 nerve roots. L4-L5: Loss of disc height and disc signal. Broad-based disc bulge and superimposed central disc herniation with bilateral facet arthrosis and hypertrophy of ligamentum flavum causing [id number] central canal stenosis, moderate to severe left- sided neural foraminal narrowing and moderate right-sided neural foraminal narrowing. Bulging disc likely contacting bilateral L4 nerve roots. L5-S1: Normal appearance. IMPRESSION: 1. No marrow edema. No acute compression fracture or spondylolisthesis. No gross paraspinous soft tissue abnormalities. 2. Spondylitic changes and bilateral facet arthrosis at L1-2 through L4-5 levels causing various degrees of central canal stenosis and bilateral neural foraminal narrowing most notably at L4-5 level as above. Dictated by: Manfred Gaona M.D. on 07/18/2024 at 15:02 Approved by: Manfred Gaona M.D. on 07/18/2024 at 15:04 [facility] Narrative Medical decision making narrative: Patient here for low back pain radiating to right leg. Patient had urinary incontinence yesterday. /last night. Patient has had back problems since she was a teenager. Has been evaluated by providers but has not able to get any surgeries. Patient states pain has been increasing in the past 1 month. Has had pain and weakness of the right leg as well. No fever or chills. No saddle paresthesia. After history and exam, MRI lumbar spine, CBC CMP [facility] Medical records reviewed: No recent visit for this complaint Differential considered: Includes but not limited to cauda equina diskitis epidural abscess exacerbation of chronic back pain herniated disc Lab Test results independently reviewed as above. Pertinent findings: Negative WBC 9.0 Imaging studies independently reviewed: MRI lumbar spine no acute finding Consultations: None indicated at this time Treatments: Dilaudid Tanoan Solu-Medrol Percocet Re-evaluations: 4:00 p.m.. Updated patient results. They are reassuring MRI results. 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 Return precautions reviewed. She just moved here from [place]. She will need referral for clinic. Return precautions reviewed. She desires discharge home. Discussion: Appropriate for discharge home. MRI reassuring. Patient otherwise neurologically intact. Laboratory studies are reassuring. Pain controlled. She desires discharge home. Diagnosis: Acute on chronic back pain Discharge Plan Departure Patient Disposition: Home Clinical Impression: Acute exacerbation of chronic low back pain Instructions: DI for Low Back Pain Activity Restrictions/Additional Instructions: laboratory studies and imaging studies are reassuring today. No driving operating machinery today. Return if worse if any questions or concerns. See family doctor in a week for re-evaluation and get spine service referral. Please call provided primary care provider phone number to obtain family doctor, . Return if worse if any questions or concerns Prescriptions: New oxycodone-acetaminophen [Percocet] 5-325 mg tablet 1 tab PO Q4-6H PRN (Reason: pain) Qty: 16 0RF methylprednisolone [Medrol (Dangelo)] 4 mg tablets,dose pack See Rx Instructions .ROUTE .COMPLEX Qty: 21 0RF Rx Instructions: orally per package directions ondansetron 4 mg tablet,disintegrating 4 mg PO Q8H PRN (Reason: nausea and vomiting) Qty: 10 0RF No Action ondansetron 4 mg tablet,disintegrating 4 mg PO Q8H PRN (Reason: nausea and vomiting) Qty: 10 0RF Referrals: Miscellaneous,Doctor, MD [Primary Care Provider] - Stand Alone Forms: Patient Portal/API/Survey
--- NOTE | 2024-07-18 12:49 | PC.NURSE ---
Pt had 1 episode of incontinence this morning. Pt has good sensation around vaginal area. Pt has some numbness on right lateral foot. Pt does not appear to have weakness in lower extremities but extreme lower back pain when moving lower extremities.
[2024-07-18] MEDS: ONDANSETRON 4 MG/2 ML INJ IV (13:01)
[2024-07-18] MEDS: HYDROMORPHONE 1 MG INJ IV ×3 (13:01→15:04)
[2024-07-18 13:09] LABS: Add Manual Diff / Slide Review NO; Basophils Absolute Auto 100 /uL (0-100); Basophils Percent Auto 0.9 % (0-2); Eosinophils Absolute Auto 200 /uL (0-450); Eosinophils Percent Auto 1.8 % (2-4); Hematocrit 39.5 % (36-46); Hemoglobin 13.5 g/dL (12.0-16.0); Lymphocytes Absolute Auto 4300 /uL (1100-4500); Lymphocytes Percent Auto 47.9 % (25-40); Mean Corpuscular HGB Conc 34.1 % (30-36); Mean Corpuscular Hemoglobin 31.2 PG (26-34); Mean Corpuscular Volume 91.5 fL (80-100); Monocytes Absolute Auto 600 /uL (0-900); Monocytes Percent Auto 6.6 % (3-14); Neutrophils Absolute Auto 3800 /uL (1500-7000); Neutrophils Percent Auto 42.8 % (50-75); Platelet Count 288 X10^3/uL (150-400); Red Blood Cell Count 4.32 X10^6/uL (4.0-5.2); Red Cell Distribution Width 13.7 % (11.6-14.8)
[2024-07-18 13:14] LABS: Alanine Aminotransferase 16 IU/L (<35); Albumin 4.3 g/dL (3.5-5.0); Albumin Globulin Ratio 1.3 (1.0-2.8); Alkaline Phosphatase 47 U/L (38-126); Aspartate Aminotransferase 30 IU/L (14-36); BUN Creatinine Ratio 12.6 (6-22); Bilirubin Total 0.4 mg/dL (0.2-1.3); Blood Urea Nitrogen 11 mg/dL (7-17); Calcium 9.2 mg/dL (8.4-10.2); Carbon Dioxide 25 mmol/L (22-32); Chloride 102 mmol/L (98-107); Estimated Glomerular Filt Rate > 60 mL/min (>60); Globulin 3.3 g/dL (1.7-4.1); Glucose 83 mg/dL (70-100); HEMOLYSIS < 15 (0-50); Potassium 4.4 mmol/L (3.4-5.1); Sodium 135 mmol/L (137-145); Total Protein 7.6 g/dL (6.3-8.2)
[2024-07-18 13:18] LABS: Pregnancy Test Serum,Qual Negative (Negative)
--- NOTE | 2024-07-18 15:08 | PC.NURSE ---
No new symptoms,Pt went to MRI,pain increased after movement from WC to bed Dr Sumner ordered 1mg IV dilaudid to be given to pt.
[2024-07-18 15:17] VITALS: PULSE 77; O2SAT 94
[2024-07-18 15:30] VITALS: PULSE 81; O2SAT 93
[2024-07-18 15:32] VITALS: BP 100/58; PULSE 76; O2SAT 94
[2024-07-18 16:00] VITALS: PULSE 78; O2SAT 96
[2024-07-18 16:01] VITALS: BP 118/62; PULSE 79; O2SAT 96
[2024-07-18] MEDS: OXYCODONE/ACETAMINOPHEN 5/325 TABLET 1 TAB PO (16:07)
[2024-07-18] MEDS: methylPREDNISolone 125 MG/2 ML VIAL IV (16:07)
== END 2024-07-18 16:24 | disposition home or self-care (01) ==
PROVIDERS: Emergency Provider Emergency Medicine
DX: M54.50 Low back pain, unspecified (principal)
CPT/HCPCS: 36415; 72148; 80053; 84703; 85025; 96374; 96375; 96376; 99284; J1171; J2405; J2919